=== PATIENT | female | born 2000 | race Two or more races ===

== ENCOUNTER 2021-12-16 05:25 | Day surgery (SDC) | payer OTHER | END 2021-12-16 13:20 | disposition home or self-care (01) | LOC: CIR.AMB 05:25 | PROVIDERS: ATTEND Obstetrics & Gynecology | DX: N84.0 Polyp of corpus uteri (principal); J45.909 Unspecified asthma, uncomplicated; F12.90 Cannabis use, unspecified, uncomplicated ==

== ENCOUNTER 2022-07-19 10:48 | Emergency (ER) | payer OTHER ==
[~2022-07-19] VITALS: Ht 170.2 cm; Wt 81.6 kg
== END 2022-07-19 17:01 | disposition home or self-care (01) ==
LOC: ER 10:48
DX: N83.291 Other ovarian cyst, right side (principal)

== ENCOUNTER 2023-02-16 18:31 | Emergency (ER) | payer OTHER ==
[~2023-02-16] VITALS: Ht 170.2 cm; Wt 88.5 kg
== END 2023-02-16 22:58 | disposition home or self-care (01) ==
LOC: ER 18:31
DX: N39.0 Urinary tract infection, site not specified (principal)